=== PATIENT | female | born 1980 | race Two or more races ===

== ENCOUNTER → 2021-01-10 09:59 | Outpatient (CLI) | payer OTHER ==
[~2021-01-10 09:59] MED LIST: ACETAMINOPHEN650 M2 PO; MEDROLPACK PO; ORPHENADRINE C100 MG PO; ULTRACET PO
== END | disposition home or self-care (01) ==
LOC: PPH VACUNA 09:59
DX: Z23 Encounter for immunization (principal)

== ENCOUNTER 2021-02-02 03:08 | Emergency (ER) | payer OTHER ==
[~2021-02-02] VITALS: Ht 152.4 cm; Wt 66.2 kg
[~2021-02-02 03:08] MED LIST changes: -ACETAMINOPHEN650 M2 PO; -MEDROLPACK PO; -ORPHENADRINE C100 MG PO
[2021-02-02] MEDS ORDERED: MEDROLPACK PO (04:30)
[2021-02-02] MEDS ORDERED: ACETAMINOPHEN650 M2 PO (04:30)
[2021-02-02] MEDS ORDERED: ORPHENADRINE C100 MG PO (04:30)
== END 2021-02-02 04:49 | disposition home or self-care (01) ==
LOC: ER 03:08
DX: G44.209 Tension-type headache, unspecified, not intractable (principal); M62.838 Other muscle spasm; M54.5 Low back pain

== ENCOUNTER 2021-03-06 10:38 | Outpatient (CLI) | payer OTHER ==
[~2021-03-06 10:38] MED LIST changes: +ACETAMINOPHEN650 M2 PO; +MEDROLPACK PO; +ORPHENADRINE C100 MG PO
== END 2021-03-06 10:40 | disposition home or self-care (01) ==
LOC: NUCLEAR 10:38
PROVIDERS: ATTEND General Practice
DX: M79.661 Pain in right lower leg (principal); M79.662 Pain in left lower leg

== ENCOUNTER 2022-04-06 11:33 | Emergency (ER) | payer OTHER ==
[~2022-04-06] VITALS: Ht 160 cm; Wt 68.0 kg
== END 2022-04-06 14:20 | disposition home or self-care (01) ==
LOC: ER 11:33
DX: U07.1 COVID-19 (principal); Z88.6 Allergy status to analgesic agent; Z88.0 Allergy status to penicillin

== ENCOUNTER 2022-04-10 12:10 | Outpatient (CLI) | payer OTHER | END 2022-04-10 13:00 | disposition home or self-care (01) | LOC: ASH CLINIC 12:10 | PROVIDERS: ATTEND General Practice | DX: U07.1 COVID-19 (principal) ==

== ENCOUNTER → 2024-08-30 | Emergency (ER) | payer OTHER ==
[~2024-08-30] VITALS: Ht 152.4 cm; Wt 77.1 kg
[~2024-08-30] MED LIST changes: +DEXAMETHASONE SODIUM PHOSPHATE 4 MG/ML VIAL IM STA; +DOLOGEN CAPLET1 EACH PO; +FAMOTIDINE/PF 20 MG/2 ML VIAL IV PUSH STA; +HYOSCYAMINE SULFATE 0.125 MG TAB.SUBL SL ONE; +LEVSIN0.125 MG PO; +OMEPRAZOLE20 MG PO; +ONDANSETRON HCL 2 MG/ML VIAL IM STA; +PEPCID AC10 MG PO; +ZOFRAN8 MG PO
[2024-08-30 20:16] VITALS: BP 127/84; O2SAT 99
[2024-08-30 21:47] LABS: HEMATOCRIT 41.2 % (36.0-45.00); HEMOGLOBIN 13.8 g/dL (12.0-15.00); MEAN CELL VOLUME 81.7 fL (80.00-100.00); MEAN CORPUSCULAR HEMOGLOBIN 27.4 pg (27.00-32.0); MEAN CORPUSCULAR HGB CONC 33.5 g/dl (32.0-36.0); PLATELET COUNT 252 K/uL (150-450); RED BLOOD COUNT 5.05 M/uL (4.00-6.00); RED CELL DISTRIBUTION WIDTH 13.3 % (11.5-14.5)
[2024-08-30 22:07] LABS: CALCIUM 9.2 mg/dL (8.5-10.1); CREATININE SERUM 1.02 mg/dL (0.55-1.02); GFR 59.15; POTASSIUM 4.13 mEq/L (3.5-5.1)
== END | disposition home or self-care (01) ==
LOC: ER 20:09
PROVIDERS: General Practice
DX: K52.9 Noninfective gastroenteritis and colitis, unspecified (principal); R10.9 Unspecified abdominal pain; Z88.0 Allergy status to penicillin; Z88.6 Allergy status to analgesic agent

== ENCOUNTER 2025-05-04 07:43 | Emergency (ER) | payer OTHER ==
[~2025-05-04] VITALS: Ht 152.4 cm; Wt 77.1 kg
[~2025-05-04 07:43] MED LIST changes: -DEXAMETHASONE SODIUM PHOSPHATE 4 MG/ML VIAL IM STA; -FAMOTIDINE/PF 20 MG/2 ML VIAL IV PUSH STA; -HYOSCYAMINE SULFATE 0.125 MG TAB.SUBL SL ONE; -ONDANSETRON HCL 2 MG/ML VIAL IM STA
[2025-05-04] MEDS ORDERED: ACETAMINOPHEN 500 MG GEL..CAP PO ONE (09:15)
[2025-05-04 10:32] LABS: BASO % 0.1 % (0.1-1.2); EOS # 0.03 (0.04-0.54); EOS % 0.4 % (0.7-7.0); LYMPH # 0.58 (1.18-3.74); LYMPH % 6.9 % (19.3-53.1); MEAN PLATELET VOLUME 11.30 fl (9.4-12.4); MONO # 0.53 (0.24-0.82); MONO % 6.3 % (4.7-12.5); NEUT # 7.18 (1.56-6.13); NEUT % 86.1 % (34.0-71.1); RED CELL DISTRIBUTION WIDTH 13.4 % (11.6-14.4)
[2025-05-04 11:09] LABS: COVID-19 AG NEGATIVE (NEGATIVE)
[2025-05-04] MEDS ORDERED: ACETAMINOPHEN500 M1 PO (13:34)
[2025-05-04] MEDS ORDERED: ZITHROMAX TRI-500 MG PO (13:34)
[2025-05-04] MEDS ORDERED: GILTUSS COUGH-118 M1 PO (13:34)
== END 2025-05-04 14:16 | disposition home or self-care (01) ==
LOC: ER 07:52
PROVIDERS: Preventive Medicine Public Health & General Preventive Medicine
DX: J06.9 Acute upper respiratory infection, unspecified (principal); Z20.822 Contact with and (suspected) exposure to COVID-19; Z88.0 Allergy status to penicillin; Z88.6 Allergy status to analgesic agent